=== PATIENT | female | born 1940 | race Caucasian/White ===

== ENCOUNTER → 2017-02-06 | Outpatient (CLI) | payer OTHER ==
[~2017-02-06] VITALS: Ht 160 cm; Wt 57.6 kg
[~2017-02-06] MED LIST: ADULT LOW DOSE81 MG PO; ALIGN4 MG PO; ARAVA10 MG PO; CALCIUM 600 +1 EAC1; CENTRUM SILVER1 EAC4; ELIQUIS5 MG PO; ENBREL50 MG/1 M1 SQ; ETODOLAC500 MG PO; FOLIC ACID1 MG PO; HUMIRA40 MG/0.8; HYDROXYCHLOROQ200 M1 PO; LEVOTHYROXIN0.088 MG PO; NEXIUM40 MG PO; SOTALOL80 MG PO; SYNTHROID112 MCG PO
--- NOTE | ~2017-02-06 | HPC ---
[facility] [place] [address] PAIN MANAGEMENT CONSULTATION Name: TIM DUMONT Room #: REG JOBY Donna#: [id number] Admission: 02/06/17 Attend Phys: Artemio Martinez MD Discharge: Date of : 44 Report #: [id number] THIS REPORT FOR: //name// CC: Bebo Martinez DATE OF SERVICE: 02/06/2017 CHIEF COMPLAINT: Bilateral buttock pain. 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 I last her saw many years ago for another problem. This pain began in August and has over the last 5 months been treated conservatively with physical therapy without success. Pain is primarily in her buttock and around her ischium. It is worse after prolonged sitting. She took a long plane ride in August and was forced to sit for a long time. She says that she could barely get up from her chair. She finds a similar pain generation when she rides in a car for too long. When she is up and moving, it seems to improve. Pain intensity on a day to day basis is 6-7/10 and she describes this is as continuous, although occasionally periodic aching and burning. Treatment and physical therapy focused on the pain location with thoughts that this might either represent some sort of piriformis syndrome, pain being worse on the right. With little improvement, she was sent to our clinic for other options and treatment modalities. She does have an anterolisthesis grade 1-2 at L4-L5 and although this does not cause a lot of significant narrowing either foraminal exit or a central stenosis, it does cause degeneration of the facet with some arthropathy there and there may be some nerve impingement in the lateral recess. MEDICATIONS: Sotalol, Synthroid, Enbrel, Centrum Silver, Caltrate, and she takes Eliquis 5 mg daily for atrial fibrillation. ALLERGIES: NABUMETONE, MELOXICAM, ____. She cannot take any of the nonsteroidal anti-inflammatory drugs due to colitis. PAST MEDICAL HISTORY: Bilateral breast biopsies in the past, all benign. She had a right knee replaced in 02/2012. Still has some restrictions in flexion, but the pain is much improved. She has had right shoulder surgery 2001. She had a cancer, hemithyroidectomy in 1972 and a tonsillectomy in 1947. She is under treatment for rheumatoid arthritis with achiness throughout many joints, improved by Enbrel. 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 The patient denies use of tobacco and alcohol. She is single. PHYSICAL EXAMINATION: GENERAL: She is 5 feet 3 inches, 127 pounds that gives her a BMI of 22.5. She appears very fit for age. She moves easily from sitting to standing position, walks with antalgic features. VITAL SIGNS: Blood pressure is 128/78, heart rate 60, respirations 14. CHEST: Clear. CARDIAC: Rhythm is irregularly irregular. Spine reveals minimal tenderness. Good range of motion in flexion, extension, rotation and [id number] tilt. Straight leg raising is mildly positive for exacerbation of pain overlying the ischium on each side. There is mild localized tenderness in that location. There is more tenderness higher up in the gluteal muscles. Sensation and strength are normal in lower extremities. Deep tendon reflexes are 1-2+ bilaterally at knees and ankles without any asymmetrical changes. MRI is reviewed and does confirm the moderate anterolisthesis of L4 on L5. This results in some degenerative changes seen within the disk and loss of height at L3-L4 and L4-L5. There is evidence of multilevel facet arthropathy and degenerative changes particularly seen at L3-L4 and L4-L5, but also at L5-S1. There is some mild stenosis noted at L4-L5 with multilevel neural foraminal narrowing as a result. IMPRESSION: Bilateral hip pain. Lumbar radiculopathy as consideration including also the possibility of trochanteric bursitis or gluteal bursitis as an underlying cause. RECOMMENDATIONS: Trial of epidural steroid injection L4-L5 at the area of anterolisthesis. If this is helpful, it may provide some good relief, which will be diagnostic as well as therapeutic. Potential benefits and risks discussed, she would like to proceed. PROCEDURE: L4-L5 epidural injection under fluoroscopic guidance. She was taken to the fluoroscopic suite, placed prone, skin prepped with ChloraPrep. Skin anesthetized over L4-L5. A 20-gauge Tuohy epidural needle advanced in the epidural space using loss of resistance, first attempt, there was no blood or CSF aspirated. A 1 mL of Omnipaque injected with excellent spread of dye observed with the AP and lateral views, then followed by 3 mL of 0.5% lidocaine mixed with 80 mg of triamcinolone. She tolerated the procedure well and was taken to recovery room for an hour and then discharged. [address] [place] [address] PAIN MANAGEMENT CONSULTATION Name: TIM DUMONT Room #: REG Jocelyn M.R.#: [id number] Admission: 02/06/17 Attend Phys: Artemio Martinez MD Discharge: Date of : 44 Report #: [id number] Followup plan in 3-4 weeks and may consider another epidural injection in another approach if she gets no relief with this injection. There is some consideration that this may be ischial bursitis or more local phenomena. I discussed the bilateral nature of her pain, was suggested that there may be more common cause, i.e., the spinal origin and we will see shortly whether or not she receives benefit. By: [id number] [id number] Artemio Martinez MD /nt
[2017-02-06 12:40] VITALS: BP 128/78
== END | disposition home or self-care (01) ==
LOC: PAIN 06:36
DX: M25.551 Pain in right hip (principal); M25.552 Pain in left hip; M54.16 Radiculopathy, lumbar region; I48.91 Unspecified atrial fibrillation; Z96.651 Presence of right artificial knee joint; Z85.850 Personal history of malignant neoplasm of thyroid; Z98.890 Other specified postprocedural states

== ENCOUNTER → 2017-02-27 | Outpatient (CLI) | payer OTHER ==
[~2017-02-27] VITALS: Ht 160 cm; Wt 56.9 kg
--- NOTE | ~2017-02-27 | HPC ---
[facility] [address] [place] [address] PAIN MANAGEMENT CONSULTATION Name: TIM DUMONT Room #: REG JOBY Donna#: [id number] Admission: 02/27/17 Attend Phys: Artemio Martinez MD Discharge: Date of : 44 Report #: [id number] THIS REPORT FOR: //name// CC: Bebo Martinez DATE OF SERVICE: 02/27/2017 Followup visit for lumbar radiculopathy. The patient returns to pain clinic today with a very good report. She is 90% better. She is walking again with her walking group and getting some exercise. We decided to forego further injections at this time. I reviewed her anterolisthesis at L4-L5, discussed the central stenosis is likely the cause of her pain and I plan going forward, which includes good core strengthening exercises, work with a administrative personal assistant, walking, and periodic epidural injections if they continue to provide such substantial relief. No medications were ordered at this time. IMPRESSION: Chronic pain, intermittent, related to L4-L5 anterolisthesis with radiculopathy. Substantial improvement following epidural injection. PLAN: Follow up as needed. By: [id number] Artemio Martinez MD /nt
[2017-02-27 11:14] VITALS: BP 113/56
== END ==
LOC: PAIN 06:42
DX: M43.16 Spondylolisthesis, lumbar region (principal); M54.16 Radiculopathy, lumbar region; M06.80 Other specified rheumatoid arthritis, unspecified site

== ENCOUNTER → 2017-07-28 | Outpatient (CLI) | payer OTHER | LOC: RAD 01:47 | DX: Z12.31 Encounter for screening mammogram for malignant neoplasm of breast (principal) ==

== ENCOUNTER → 2018-07-31 | Outpatient (CLI) | payer OTHER | LOC: RAD 02:26 | DX: Z12.31 Encounter for screening mammogram for malignant neoplasm of breast (principal) ==

== ENCOUNTER → 2019-08-12 | Outpatient (CLI) | payer OTHER | LOC: RAD 08-01 10:52 | DX: Z12.31 Encounter for screening mammogram for malignant neoplasm of breast (principal) ==

== ENCOUNTER → 2020-08-19 | Outpatient (CLI) | payer OTHER | LOC: BC 08-17 08:29 | PROVIDERS: ATTEND Internal Medicine | DX: Z12.31 Encounter for screening mammogram for malignant neoplasm of breast (principal) ==

== ENCOUNTER → 2021-08-20 | Outpatient (CLI) | payer OTHER | LOC: RAD 12:45 | PROVIDERS: ATTEND Internal Medicine | DX: Z12.31 Encounter for screening mammogram for malignant neoplasm of breast (principal) ==